=== PATIENT | female | born 2000 | race Caucasian/White ===

== ENCOUNTER 2020-11-27 07:15 | Emergency (ER) | payer OTHER ==
[~2020-11-27] VITALS: Ht 152.4 cm; Wt 72.6 kg
[2020-11-27 09:57] VITALS: BP 123/78
[2020-11-27] MEDS ORDERED: PROAIR HFA8.5 GM INH (10:13)
[2020-11-27] MEDS ORDERED: PREDNISONE 20 M20 MG PO (10:13)
== END 2020-11-27 10:29 | disposition home or self-care (01) ==
LOC: ER 07:15
PROVIDERS: Emergency Medicine
DX: J45.901 Unspecified asthma with (acute) exacerbation (principal); Z20.822 Contact with and (suspected) exposure to COVID-19; J06.9 Acute upper respiratory infection, unspecified; R05 Cough; R06.02 Shortness of breath